=== PATIENT | male | born 2000 | race Caucasian/White ===

== ENCOUNTER 2021-08-26 14:37 | Emergency (ER) | payer OTHER, SELFPAY ==
[2021-08-26 14:45] VITALS: BP 151/98; PULSE 98; RESP 20; TEMP 37.2; O2SAT 99
--- NOTE | 2021-08-26 16:00 | DI.RAD_ITS ---
Exam(s) XR ANKLE RT COMPLETE EXAM: XR ANKLE RT COMPLETE CLINICAL HISTORY: fall with lateral trauma. TECHNIQUE: 2D digital imaging was performed. COMPARISON: No exams were available for comparison FINDINGS: 3 views Soft tissue swelling both sides of the ankle, more so on the left side. No fracture or dislocation. No widening of the mortise. Talar dome unremarkable. No osseous lesion s. Bone density normal. IMPRESSION: Soft tissue swelling but no fractures. DATA REPOSITORY: RADIATION DOSE DELIVERED:
--- NOTE | 2021-08-26 16:48 | ED.GENADUL_ITS ---
Discharge Plan Disposition Patient Disposition: HOME Condition: Stable Discharge Details Clinical Impression: Right ankle sprain Primary Care Provider: None,None ED Provider: Kai Olivera Home Meds and New Rx's Prescriptions: No Action melatonin 5 mg Capsule 5 mg PO QHS Discharge Instructions Instructions: Ankle Sprain (ED), R.I.C.E. Treatment (ED) Additional Instructions: Please continue to take [id number] ibuprofen 600 mg every 6 hours as needed for pain and discomfort. If you develop any new or significant worsening of symptoms please return immediately to the emergency department for reassessment. Use crutches for the next 2 to 3 days and then you may perform weightbearing activities as tolerated and if not improving in the next 1 to 2 weeks please call your primary care office or orthopedic office for arrangement of reassessment. Stand Alone Forms: Work Release Referrals: [facility] [Provider Group] - 2 weeks (if not improving) Discharge Data Discharge Date/Time-TO BE ENTERED AT DEPARTURE: 08/26/21 17:24 Medical Decision Making Patient presents to the emergency department for chief complaint of right ankle injury. Patient states that yesterday he was walking down some stairs and had a mechanical fall with slight twist of his right ankle. Patient denies any other injury or trauma. Physical exam consistent with lateral right ankle injury. Will perform radiological imaging for evaluation of potential acute fracture given that patient states difficulty with weightbearing and tenderness to lateral ankle. Review of radiological imaging shows no acute findings. Discussed management of ankle sprain with patient along with return and follow-up precautions. After discussion of diagnosis and plan of care patient has no further needs, questions, or concerns and states clear understanding to return to the emergency department for any worsening symptoms. This documentation was generated using [employer] system, please disregard any oddities of phrase or misspellings. Imaging Data Radiologic Study: Imaging: X-Ray Radiologist's impression: FINDINGS: 3 views Soft tissue swelling both sides of the ankle, more so on the left side. No fracture or dislocation. No widening of the mortise. Talar dome unremarkable. No osseous lesions. Bone density normal. IMPRESSION: Soft tissue swelling but no fractures. HPI General Date/Time Provider Initiated Documentation: 08/26/21 15:34 . Limitations to Documentation: no limitations . Information obtained by: patient and RN notes reviewed . History of Present Illness 21 year old M presents to the emergency department with the chief complaint of Right ankle injury, described as moderate, with intensity rated at 7. Quality is described as aching, and is localized to the right and lower extremity. Patient reports no radiation. Patient started experiencing this day(s) (1) and it has been constant. No relieving factors improve symptom(s), Movement worsens symptoms . Patient notes no other symptoms.. Patient did receive the following treatments prior to arrival, NSAID Related Data Home Medications Medication Instructions Recorded Confirmed melatonin 5 mg capsule 5 mg PO QHS 08/26/21 08/26/21 Allergies Allergy/AdvReac Type Severity Reaction Status Date / Time amoxicillin Allergy Other (See Unverified 08/26/21 16:45 Comment) General Stated Complaint: Orthopedic CHELSIE: 4 Review of Systems Narrative: 8 systems reviewed and unremarkable except what is marked below. Musculoskeletal Musculoskeletal: Reports as per HPI, Reports arthralgias, Reports joint swelling and Reports limited range of motion Integumentary/Breasts Skin/Breast: Denies wounds Neurologic Neurologic: Denies paresthesias PFSH All Active Problems (Updated 08/26/21 @ 16:51 by Kai Olivera NP) Right ankle sprain (Acute) Social History Smoking/Tobacco Use Status: Never Smoking risk assessment performed?: Yes Alcohol Intake: never Drug use: Never Substance use type: does not use Do you feel safe at home: Yes Do you feel safe in your relationship?: Yes Exam Const General: cooperative, no acute distress and not ill appearing Orientation: alert, awake and oriented x3 Resp Effort & Inspection: normal respiratory effort, able to speak in complete sentences and no respiratory distress Cardio Rate: regular rate Rhythm: regular rhythm Pulses: normal peripheral pulses Skin General skin exam: no rashes or lesions noted Neuro General: patient alert, patient awake, patient oriented x3 and moves all extremities Sensory Exam: no sensory deficits noted Extrem General: normal exam except as noted Right lower extremity: ankle Details: tenderness Location: of the lateral malleolus, swelling Details: laterally and abnormal ROM Details: pain with active ROM; no abrasions, no lacerations and no ecchymosis and foot Details: normal capillary refill, toes with normal ROM and motor-sensory exam Details: two point discrimination normal and light-touch normal; no tenderness Course Vital Signs Vital signs: Vital Signs Temperature 37.2 C 08/26/21 14:45 Pulse 98 H 08/26/21 14:45 Respiratory Rate 20 08/26/21 14:45 Blood Pressure 151/98 H 08/26/21 14:45 Pulse Oximetry 99 08/26/21 14:45 Temperature 37.2 C 08/26/21 14:45 Pulse 98 H 08/26/21 14:45 Respiratory Rate 20 08/26/21 14:45 Respiratory Effort Non-Labored 08/26/21 15:16 Blood Pressure 151/98 H 08/26/21 14:45 Blood Pressure Position Sitting 08/26/21 14:45 Pulse Oximetry 99 08/26/21 14:45 Oxygen Delivery Method Room Air 08/26/21 14:45 Oxygen Flow Rate 0 08/26/21 14:45
--- NOTE | 2021-08-26 16:51 | DI.VRAD_ITS ---
PROCEDURE INFORMATION: Exam: XR Right Ankle Exam date and time: 08/26/2021 4:16 PM Age: 21 years old Clinical indication: Other: Fall with lateral trauma TECHNIQUE: Imaging protocol: Radiologic exam of the Right ankle. Views: 3 or more views. COMPARISON: No relevant prior studies available. FINDINGS: Bones/joints: No definite acute fracture identified. Soft tissues: There is significant lateral soft tissue swelling. This can be seen with occult fracture or ligamentous injury. If indicated, MRI could be considered for further evaluation. No unusual soft tissue calcifications. IMPRESSION: 1. No definite fracture is identified. It should be noted that fractures can be difficult to identify on initial posttraumatic radiographs. If symptoms persist or remain concerning, consider follow-up imaging in 7 days or alternative imaging modalities. 2.There is significant lateral soft tissue swelling. This can be seen with occult fracture or ligamentous injury. If indicated, MRI could be considered for further evaluation. Other findings/details as above. Dictated and Authenticated by: Aline Lucas MD. Ordering:NORA Quinn MD
== END 2021-08-26 17:24 | disposition home or self-care (01) ==
PROVIDERS: Emergency Provider Nurse Practitioner Family
DX: S93.491A Sprain of other ligament of right ankle, initial encounter (principal); X50.1XXA Overexertion from prolonged static or awkward postures, initial encounter
CPT/HCPCS: 29515; 99283; 73610